=== PATIENT | female | born 1960 | race Caucasian/White ===

== ENCOUNTER → 2016-05-06 | Outpatient (CLI) | payer OTHER ==
[2016-05-07 08:13] LABS: SEX HORMONE BINDING GLOBULIN 76.1 nmol/L (17.3-125.0)
== END | disposition home or self-care (01) ==
LOC: LABPV 11:22
DX: Z13.29 Encounter for screening for other suspected endocrine disorder (principal); N95.9 Unspecified menopausal and perimenopausal disorder; Z79.890 Hormone replacement therapy
CPT/HCPCS: 80327; 82670; 84146; 84270; 84403; 85014

== ENCOUNTER → 2016-07-29 | Outpatient (CLI) | payer OTHER ==
[2016-07-29 16:50] LABS: HEMATOCRIT 40.3 % (36-46); HEMOGLOBIN 13.2 g/dL (12.0-16.0)
[2016-07-30 08:07] LABS: PROGESTERONE 0.4 ng/mL; SEX HORMONE BINDING GLOBULIN 71.3 nmol/L (17.3-125.0)
== END | disposition home or self-care (01) ==
LOC: LABPV 15:22
DX: N95.9 Unspecified menopausal and perimenopausal disorder (principal); R53.83 Other fatigue; E28.39 Other primary ovarian failure; Z79.890 Hormone replacement therapy
CPT/HCPCS: 80327; 82670; 84144; 84270; 84403; 84443; 85014; 85018

== ENCOUNTER → 2017-05-27 | Outpatient (CLI) | payer OTHER ==
[2017-05-27 16:48] LABS: HEMATOCRIT 38.7 % (36-46)
== END | disposition home or self-care (01) ==
LOC: LABPV 13:32
DX: E55.9 Vitamin D deficiency, unspecified (principal); N95.9 Unspecified menopausal and perimenopausal disorder; Z79.890 Hormone replacement therapy
CPT/HCPCS: 80327; 82306; 82670; 84270; 84403; 85014; 85018